=== PATIENT | male | born 1990 | race African-American/Black ===

== ENCOUNTER 2022-02-23 14:53 | Inpatient (IN) | payer MEDICARE ==
[2022-02-23] MEDS ORDERED: Aspirin Chewable 81 MG TAB ONE (15:29)
[2022-02-23] MEDS ORDERED: Furosemide 40 MG/4 ML VIAL ONE (15:29)
[2022-02-23 15:32] LABS: #Lymphocytes 1.2 thou/uL (1.20-3.40); #Monocytes 0.2 thou/uL (0.11-0.59); #Neutrophils 2.4 thou/uL (1.40-6.50); %Eosinophils 1.2 % (0.0-10.0); %Lymphocytes 31.3 % (21.0-51.0); %Neutrophils 60.5 % (42.0-75.0); Hemoglobin 16.1 g/dL (14.0-18.0); Mean Corpuscular HGB CONC 31.3 g/dL (32.0-36.0); Mean Corpuscular Hemoglobin 30.1 pg (27.0-31.0); Mean Corpuscular Volume 96.3 fL (78.0-98.0); Mean Platelet Volume 10.2 fL (7.4-10.4); Platelet Count 190 thou/uL (130-400); RBC Distribution Width 15.4 % (11.5-14.5); Red Blood Cell (RBC) Count 5.36 mill/uL (4.70-6.10); White Blood Cell (WBC) Count 3.9 thou/uL (4.8-10.8)
[2022-02-23 16:14] LABS: CK (CPK) 150 U/L (30-200)
[2022-02-23 17:07] LABS: ALT (SGPT) 18 U/L (8-55); AST (SGOT) 36 U/L (5-34); Alkaline Phosphatase 185 U/L (40-110); Anion Gap 16 mmol/L (10-20); BUN (Urea Nitrogen) 39 mg/dL (8.9-20.6); Bilirubin, Total 5.7 mg/dL (0.2-1.2); Calc. Creatinine Clearance 0 mL/min (70-130); Calcium 9.3 mg/dL (7.8-10.44); Carbon Dioxide 30 mmol/L (22-29); Chloride 90 mmol/L (98-107); Estimated GFR 47; Globulin 3.8 g/dL (2.4-3.5); Glucose 111 mg/dL (70-105); Lipase 24 U/L (8-78); Potassium 3.1 mmol/L (3.5-5.1); Protein, Total 6.8 g/dL (6.0-8.3); Sodium 133 mmol/L (136-145)
[2022-02-23] MEDS ORDERED: Potassium Chloride 20 MEQ TAB ONE (17:59)
[2022-02-23] MEDS ORDERED: Ondansetron PF 4 MG/2 ML Vial IVP PRN (18:22)
[2022-02-23] MEDS ORDERED: Senokot S 8.6-50 MG TAB PO PRN (18:22)
[2022-02-23] MEDS ORDERED: Labetalol HCl 100 MG/20 ML VIAL SLOW IVP PRN (18:27)
[2022-02-23] MEDS ORDERED: Nitroglycerin 0.4 MG TAB (25 Tab Bottle) SL PRN (18:30)
[2022-02-23 19:51] LABS: Anion Gap 18 mmol/L (10-20); BUN (Urea Nitrogen) 40 mg/dL (8.9-20.6); Calc. Creatinine Clearance 0 mL/min (70-130); Calcium 9.1 mg/dL (7.8-10.44); Carbon Dioxide 26 mmol/L (22-29); Chloride 91 mmol/L (98-107); Estimated GFR 49; Sodium 132 mmol/L (136-145)
[2022-02-23 20:05] LABS: Glucose 49 mg/dL (70-105); Potassium 2.8 mmol/L (3.5-5.1)
[2022-02-23 20:07] LABS: Troponin I 0.047 ng/mL (< 0.028)
[2022-02-23 20:40] VITALS: BMI 43.0
[2022-02-23] MEDS ORDERED: Heparin 5,000 UNITS/ML VIAL SC SCH (21:00)
[2022-02-23] MEDS ORDERED: Pantoprazole 40 MG VIAL IVP SCH (21:00)
[2022-02-23 21:53] LABS: Potassium 2.8 mmol/L (3.5-5.1)
[2022-02-23] MEDS: Nitroglycerin 2% Ointment 1 INCH/1 GM Packet TOP SCH ×2 (21:57→22:21)
[2022-02-23] MEDS ORDERED: Furosemide 20 MG/2 ML VIAL SLOW IVP SCH (22:00)
[2022-02-23] MEDS: Potassium Chloride 20 MEQ in Premix Bag 1 BAG IVPB SCH (22:13)
[2022-02-23] MEDS: Levalbuterol HCl 0.63 MG/3 ML NEB NEB SCH (23:41)
[2022-02-24] MEDS ORDERED: Potassium Chloride 20 MEQ TAB PO SCH ×3 (00:45→22:00)
[2022-02-24] MEDS: Potassium Chloride 20 MEQ in Premix Bag 1 BAG IVPB SCH (01:04)
[2022-02-24 06:15] LABS: #Eosinphils 0.1 thou/uL (0.0-0.7); #Lymphocytes 1.6 thou/uL (1.20-3.40); #Monocytes 0.4 thou/uL (0.11-0.59); #Neutrophils 2.2 thou/uL (1.40-6.50); %Basophils 0.7 % (0.0-1.0); %Eosinophils 1.3 % (0.0-10.0); %Lymphocytes 37.3 % (21.0-51.0); %Monocytes 9.7 % (0.0-10.0); Hemoglobin 15.3 g/dL (14.0-18.0); Mean Corpuscular HGB CONC 31.6 g/dL (32.0-36.0); Mean Corpuscular Hemoglobin 30.1 pg (27.0-31.0); Mean Corpuscular Volume 95.1 fL (78.0-98.0); Mean Platelet Volume 10.3 fL (7.4-10.4); Platelet Count 190 thou/uL (130-400); RBC Distribution Width 15.6 % (11.5-14.5); Red Blood Cell (RBC) Count 5.09 mill/uL (4.70-6.10); White Blood Cell (WBC) Count 4.3 thou/uL (4.8-10.8)
[2022-02-24 06:23] LABS: Hemoglobin A1c 6.3 % (4.0-6.0)
[2022-02-24 06:38] LABS: Cardiac Risk 4.3 (Less than 4.5); Cholesterol 147 mg/dl (< 200 Desired); HDL Cholesterol 34 mg/dL (>60 Neg Risk); LDL Cholesterol, Calculated 99 mg/dL; Magnesium 1.8 mg/dL (1.6-2.6); Triglycerides 68 mg/dL (Less than 150)
[2022-02-24 06:39] LABS: ALT (SGPT) 19 U/L (8-55); AST (SGOT) 34 U/L (5-34); Albumin 2.9 g/dL (3.5-5.0); Alkaline Phosphatase 164 U/L (40-110); Anion Gap 18 mmol/L (10-20); BUN (Urea Nitrogen) 39 mg/dL (8.9-20.6); Bilirubin, Total 5.1 mg/dL (0.2-1.2); Calc. Creatinine Clearance 112 mL/min (70-130); Carbon Dioxide 26 mmol/L (22-29); Chloride 90 mmol/L (98-107); Estimated GFR 50; Globulin 3.6 g/dL (2.4-3.5); Glucose 77 mg/dL (70-105); Protein, Total 6.5 g/dL (6.0-8.3); Sodium 131 mmol/L (136-145)
[2022-02-24] MEDS: Levalbuterol HCl 0.63 MG/3 ML NEB NEB SCH ×3 (06:45→22:31)
[2022-02-24] MEDS: Furosemide 20 MG/2 ML VIAL SLOW IVP SCH ×2 (08:08→15:34)
[2022-02-24] MEDS: Potassium Chloride 20 MEQ TAB PO SCH ×3 (08:46→22:06)
[2022-02-24] MEDS: Pantoprazole 40 MG VIAL IVP SCH (08:46)
[2022-02-24] MEDS ORDERED: Furosemide 40 MG/4 ML VIAL SLOW IVP SCH (18:15)
[2022-02-24] MEDS ORDERED: Magnesium Sulfate 3 GM in Sodium Chloride 0.9% 100 ML IVPB SCH (18:15)
[2022-02-24 21:33] LABS: Anion Gap 15 mmol/L (10-20); BUN (Urea Nitrogen) 40 mg/dL (8.9-20.6); Calc. Creatinine Clearance 106 mL/min (70-130); Calcium 9.2 mg/dL (7.8-10.44); Carbon Dioxide 27 mmol/L (22-29); Chloride 91 mmol/L (98-107); Estimated GFR 47; Glucose 89 mg/dL (70-105); Magnesium 2.4 mg/dL (1.6-2.6); Phosphorus 3.7 mg/dL (2.3-4.7); Potassium 3.2 mmol/L (3.5-5.1); Sodium 130 mmol/L (136-145)
[2022-02-24 21:37] LABS: Troponin I 0.038 ng/mL (< 0.028)
[2022-02-24] MEDS ORDERED: Potassium Chloride 20 MEQ TAB PO ONE (22:00)
[2022-02-25] MEDS: Potassium Chloride 20 MEQ TAB PO SCH (00:35)
[2022-02-25 05:04] LABS: Anion Gap 17 mmol/L (10-20); BUN (Urea Nitrogen) 40 mg/dL (8.9-20.6); Calc. Creatinine Clearance 111 mL/min (70-130); Calcium 9.4 mg/dL (7.8-10.44); Carbon Dioxide 28 mmol/L (22-29); Chloride 90 mmol/L (98-107); Estimated GFR 50; Glucose 99 mg/dL (70-105); Magnesium 2.2 mg/dL (1.6-2.6); Potassium 3.6 mmol/L (3.5-5.1); Sodium 131 mmol/L (136-145)
[2022-02-25] MEDS: Furosemide 20 MG/2 ML VIAL SLOW IVP SCH ×2 (06:29→17:54)
[2022-02-25] MEDS: Levalbuterol HCl 0.63 MG/3 ML NEB NEB SCH ×3 (06:56→23:01)
[2022-02-25] MEDS ORDERED: Empagliflozin 10 MG TAB PO SCH (09:00)
[2022-02-25] MEDS: Empagliflozin 10 MG TAB PO SCH (09:01)
[2022-02-25] MEDS: Pantoprazole 40 MG VIAL IVP SCH (09:01)
[2022-02-25 10:34] LABS: ALT (SGPT) 18 U/L (8-55); AST (SGOT) 37 U/L (5-34); Alkaline Phosphatase 177 U/L (40-110); Bilirubin, Direct 2.9 mg/dL (0.1-0.3); Bilirubin, Total 5.5 mg/dL (0.2-1.2)
[2022-02-26] MEDS: Furosemide 20 MG/2 ML VIAL SLOW IVP SCH ×2 (05:38→15:42)
[2022-02-26] MEDS: Levalbuterol HCl 0.63 MG/3 ML NEB NEB SCH ×3 (07:20→23:49)
[2022-02-26] MEDS ORDERED: Labetalol HCl 100 MG/20 ML VIAL SLOW IVP SCH (10:30)
[2022-02-26] MEDS: Empagliflozin 10 MG TAB PO SCH (11:15)
[2022-02-26 11:31] LABS: #Basophils 0.1 thou/uL (0.0-0.2); #Eosinphils 0.1 thou/uL (0.0-0.7); #Lymphocytes 1.2 thou/uL (1.20-3.40); #Monocytes 0.4 thou/uL (0.11-0.59); #Neutrophils 2.4 thou/uL (1.40-6.50); %Basophils 1.5 % (0.0-1.0); %Eosinophils 1.7 % (0.0-10.0); %Lymphocytes 29.3 % (21.0-51.0); %Monocytes 9.4 % (0.0-10.0); %Neutrophils 58.1 % (42.0-75.0); Hemoglobin 16.5 g/dL (14.0-18.0); Mean Corpuscular HGB CONC 31.4 g/dL (32.0-36.0); Mean Corpuscular Hemoglobin 30.3 pg (27.0-31.0); Mean Corpuscular Volume 96.5 fL (78.0-98.0); Mean Platelet Volume 10.2 fL (7.4-10.4); Platelet Count 211 thou/uL (130-400); RBC Distribution Width 15.7 % (11.5-14.5); Red Blood Cell (RBC) Count 5.46 mill/uL (4.70-6.10); White Blood Cell (WBC) Count 4.1 thou/uL (4.8-10.8)
[2022-02-26 11:53] LABS: Anion Gap 18 mmol/L (10-20); BUN (Urea Nitrogen) 38 mg/dL (8.9-20.6); Calc. Creatinine Clearance 111 mL/min (70-130); Calcium 9.5 mg/dL (7.8-10.44); Carbon Dioxide 29 mmol/L (22-29); Chloride 90 mmol/L (98-107); Estimated GFR 51; Glucose 82 mg/dL (70-105); Potassium 3.3 mmol/L (3.5-5.1); Sodium 134 mmol/L (136-145)
[2022-02-26] MEDS ORDERED: Potassium Chloride 20 MEQ TAB PO SCH (15:15)
[2022-02-26] MEDS: Carvedilol 3.125 MG TAB PO SCH (15:42)
[2022-02-27 04:50] LABS: Anion Gap 14 mmol/L (10-20); BUN (Urea Nitrogen) 38 mg/dL (8.9-20.6); Calc. Creatinine Clearance 110 mL/min (70-130); Calcium 9.5 mg/dL (7.8-10.44); Carbon Dioxide 32 mmol/L (22-29); Chloride 90 mmol/L (98-107); Estimated GFR 50; Glucose 70 mg/dL (70-105); Potassium 3.4 mmol/L (3.5-5.1); Sodium 133 mmol/L (136-145)
[2022-02-27] MEDS: Furosemide 20 MG/2 ML VIAL SLOW IVP SCH ×2 (06:09→17:38)
[2022-02-27] MEDS: Levalbuterol HCl 0.63 MG/3 ML NEB NEB SCH ×3 (06:27→22:37)
[2022-02-27] MEDS: Empagliflozin 10 MG TAB PO SCH (09:34)
[2022-02-27] MEDS: Carvedilol 3.125 MG TAB PO SCH ×2 (09:35→17:38)
[2022-02-27] MEDS ORDERED: Potassium Chloride 20 MEQ TAB PO SCH (10:30)
[2022-02-27] MEDS: Melatonin 3 MG TAB PO PRN (20:17)
[2022-02-28 04:54] LABS: Anion Gap 15 mmol/L (10-20); BUN (Urea Nitrogen) 35 mg/dL (8.9-20.6); Calc. Creatinine Clearance 114 mL/min (70-130); Calcium 8.9 mg/dL (7.8-10.44); Carbon Dioxide 28 mmol/L (22-29); Chloride 90 mmol/L (98-107); Estimated GFR 53; Glucose 90 mg/dL (70-105); Potassium 3.4 mmol/L (3.5-5.1); Sodium 130 mmol/L (136-145)
[2022-02-28] MEDS: Furosemide 20 MG/2 ML VIAL SLOW IVP SCH ×2 (05:24→17:30)
[2022-02-28] MEDS: Levalbuterol HCl 0.63 MG/3 ML NEB NEB SCH ×3 (07:13→23:54)
[2022-02-28] MEDS: Carvedilol 3.125 MG TAB PO SCH ×2 (09:01→17:31)
[2022-02-28] MEDS: Empagliflozin 10 MG TAB PO SCH (09:03)
[2022-02-28] MEDS: Melatonin 3 MG TAB PO PRN (20:51)
[2022-03-01 04:32] LABS: Anion Gap 14 mmol/L (10-20); BUN (Urea Nitrogen) 33 mg/dL (8.9-20.6); Calc. Creatinine Clearance 123 mL/min (70-130); Calcium 8.4 mg/dL (7.8-10.44); Carbon Dioxide 27 mmol/L (22-29); Chloride 92 mmol/L (98-107); Estimated GFR 57; Glucose 104 mg/dL (70-105); Potassium 3.2 mmol/L (3.5-5.1); Sodium 130 mmol/L (136-145)
[2022-03-01] MEDS: Furosemide 20 MG/2 ML VIAL SLOW IVP SCH ×2 (05:14→17:02)
[2022-03-01] MEDS: Levalbuterol HCl 0.63 MG/3 ML NEB NEB SCH ×3 (06:57→22:22)
[2022-03-01] MEDS: Carvedilol 3.125 MG TAB PO SCH ×2 (08:54→17:02)
[2022-03-01] MEDS: Empagliflozin 10 MG TAB PO SCH (08:55)
[2022-03-01] MEDS ORDERED: Potassium Chloride 20 MEQ TAB PO SCH (09:00)
[2022-03-02 04:21] LABS: Anion Gap 16 mmol/L (10-20); BUN (Urea Nitrogen) 32 mg/dL (8.9-20.6); Calc. Creatinine Clearance 125 mL/min (70-130); Calcium 9.1 mg/dL (7.8-10.44); Carbon Dioxide 26 mmol/L (22-29); Chloride 92 mmol/L (98-107); Estimated GFR 56; Glucose 89 mg/dL (70-105); Potassium 3.5 mmol/L (3.5-5.1); Sodium 130 mmol/L (136-145)
[2022-03-02] MEDS: Furosemide 20 MG/2 ML VIAL SLOW IVP SCH ×2 (06:28→16:32)
[2022-03-02] MEDS ORDERED: Ketamine 50 MG/ML (10ML VIAL) ONE (07:14)
[2022-03-02] MEDS ORDERED: fentaNYL Citrate/PF 100 MCG/2 ML SYRINGE ONE (07:14)
[2022-03-02] MEDS ORDERED: Midazolam HCl 5 mg/5 ml Vial ONE (07:14)
[2022-03-02] MEDS ORDERED: Propofol 500 MG/50 ML VIAL ONE (07:14)
[2022-03-02] MEDS ORDERED: CEFAZOLIN 1 GM VIAL ONE (07:15)
[2022-03-02] MEDS ORDERED: Midazolam HCl 2 mg/2 ml Vial ONE (07:15)
[2022-03-02] MEDS ORDERED: Gentamicin 80 MG/50 ML BAG ONE (07:15)
[2022-03-02] MEDS: Levalbuterol HCl 0.63 MG/3 ML NEB NEB SCH ×2 (07:18→16:32)
[2022-03-02] MEDS ORDERED: Promethazine HCl 25 MG/ML VIAL IM PRN (10:58)
[2022-03-02] MEDS ORDERED: Promethazine HCl 25 MG/ML VIAL IVPB PRN (10:58)
[2022-03-02] MEDS ORDERED: Ondansetron HCl/PF 4 MG/2 ML Vial IVP PRN (10:58)
[2022-03-02] MEDS: Empagliflozin 10 MG TAB PO SCH (12:30)
[2022-03-02] MEDS: Carvedilol 3.125 MG TAB PO SCH ×2 (12:30→15:48)
[2022-03-02] MEDS ORDERED: HYDROcodone/Acetaminophen 5/325 mg Tablet PO PRN (15:20)
[2022-03-02] MEDS ORDERED: Potassium Chloride 20 MEQ TAB PO SCH (18:00)
[2022-03-02] MEDS ORDERED: Ondansetron PF 4 MG/2 ML Vial ONE (19:40)
[2022-03-02 21:32] LABS: Magnesium 1.9 mg/dL (1.6-2.6)
[2022-03-02 23:32] VITALS: BP 152/75; TEMP 97.3
== END 2022-03-02 23:10 | disposition short-term general hospital (02) | DRG 226 ==
LOC: ERS 14:53 → 2NO 18:29
PROVIDERS: ADMIT Internal Medicine; ATTEND Internal Medicine
PROC: 0JH608Z Insertion of Defibrillator Generator into Chest Subcutaneous Tissue and Fascia, Open Approach (ICD-10-PCS; principal; 2022-02-23)
PROC: 02HK0KZ Insertion of Defibrillator Lead into Right Ventricle, Open Approach (ICD-10-PCS; 2022-02-23)
DX: I13.0 Hypertensive heart and chronic kidney disease with heart failure and stage 1 through stage 4 chronic kidney disease, or unspecified chronic kidney disease (principal); I50.23 Acute on chronic systolic (congestive) heart failure; K76.7 Hepatorenal syndrome; N17.9 Acute kidney failure, unspecified; I47.2 Ventricular tachycardia; E87.1 Hypo-osmolality and hyponatremia; Z68.41 Body mass index [BMI] 40.0-44.9, adult; Z20.822 Contact with and (suspected) exposure to COVID-19; N18.31 Chronic kidney disease, stage 3a; E87.6 Hypokalemia; I42.8 Other cardiomyopathies; E66.9 Obesity, unspecified; E11.22 Type 2 diabetes mellitus with diabetic chronic kidney disease; I49.3 Ventricular premature depolarization; Z79.899 Other long term (current) drug therapy
CPT/HCPCS: 33249; 36415; 36416; 71045; 76705; 80048; 80053; 80061; 80076; 82550; 82553; 83036; 83690; 83735; 83880; 84100; 84484; 85025; 93005; 93010; 94640; 96374; C1895; C9113; J0690; J1580; J1940; J2250; J2260; J2405; J2704; J3475; J3480; J3490; J7614; U0003; U0005